=== PATIENT | male | born 1930 | race Caucasian/White ===

== ENCOUNTER 2016-11-07 04:59 | Inpatient (IN) | payer OTHER, MEDICARE ==
[~2016-11-07] VITALS: Ht 160 cm; Wt 87.1 kg
[~2016-11-07 04:59] MED LIST: ATENOLOL50 M1 PO; MYRBETRIQ50 M1 PO; OMEPRAZOLE20 M2 PO; TROSPIUM CHLORI20 M1 PO
[2016-11-07] MEDS ORDERED: VITAMIN C WIT1000 MG PO (11:51)
[2016-11-07] MEDS ORDERED: DILAUDID2 M1 PO (13:49)
[2016-11-07] MEDS ORDERED: MIRALAX17 G1 PO (13:49)
[2016-11-07] MEDS ORDERED: ASPIRIN EC325 M2 PO (13:49)
[2016-11-07] MEDS ORDERED: MS CONTIN15 M2 PO (13:49)
[2016-11-07] MEDS ORDERED: COLACE100 M1 PO (13:49)
--- NOTE | 2016-11-07 13:53 | Patient Discharge Instructions ---
Discharge Instructions General Discharge Information You were seen/treated for: Left hip pain related to unilateral primary osteoarthritis You had these procedures: Left total hip replacement Watch for these problems: Increasing pain despite the use of pain medication. Increasing redness, warmth, swelling. Drainage of any type from incision. Inability to bear weight on operative leg. Persistent nausea and vomitting. Fever greater than 101.5 degrees. Do not soak the wound: Yes No bath, but you may shower: Yes Other wound care: Keep wound clean and dry. Your dressing will be changed on the second day following your surgery by nursing. Daily dry dressing changes recommend thereafter. No ointments or lotions of any type on or near incision at any time. No exceptions. Special Instructions: Aspirin: You are taking aspirin to help prevent the development of blood clots. You will be taking it twice a day. Please take this as directed for four weeks. Please take with food to help protect your stomach. Constipation: Pain medications can be very constipating. You have been given a prescription for colace and miralax. Please take this as directed. In the event that you run out of these medications, they are available over the counter. You may discontinue these medications if you develop loose stool or diarrhea. If you are unable to move your bowels for several days, or if you have not passed any gas, please contact your doctor. Diet Continue normal diet: No Recommended Diet: Regular Activity Full Activity/No Limits: No Activity Self Limited: Yes Pounds, do NOT lift more than: 10 Activity Limited to: Weight bear as tolerated Acute Coronary Syndrome Inclusion Criteria At DC or during hospital stay patient has or had the following: ACS DIAGNOSIS No Discharge Core Measures Meds if any: Prescribed or Continued at Discharge Meds if any: NOT Prescribed or Continued at Discharge Congestive Heart Failure Inclusion Criteria At DC or during hospital stay patient has or had the following: CHF DIAGNOSIS No Discharge Core Measures Meds if any: Prescribed or Continued at Discharge Meds if any: NOT Prescribed or Continued at Discharge Cerebrovascular accident Inclusion Criteria At DC or during hospital stay patient has or had the following: CVA/TIA Diagnosis No Discharge Core Measures Meds if any: Prescribed or Continued at Discharge Meds if any: NOT Prescribed or Continued at Discharge Venous thromboembolism Inclusion Criteria VTE Diagnosis No VTE Type NONE VTE Confirmed by (Test) NONE Discharge Core Measures - Per Current guidelines, there needs to be overlap - treatment for the first 5 days of Warfarin therapy. - If discharged on Warfarin prior to 5 days of - overlap therapy, the patient will need to be - assessed for post discharge needs including - *Post discharge parental anticoagulation - *Warfarin and/or parental anticoagulation education - *Follow up date to check INR post discharge At least 5 days overlap therapy as Inpatient No Meds if any: Prescribed or Continued at Discharge Note: Overlap Therapy is Warfarin and Anticoagulant Meds if any: NOT Prescribed or Continued at Discharge
--- NOTE | 2016-11-07 13:54 | Admission Core Measures ---
Admission Meds I reviewed the following Meds: Current Medications Sig/Yuliya Start time Last Medication Dose Stop Time Status Admin Acetaminophen 975 MG ONCE 11/07 0000 NR (Tylenol) 11/07 235 Atenolol 50 MG DAILY 11/08 1000 AC (Tenormin) Cefazolin Sodium 2,000 MG ONCE 11/07 0000 NR (Kefzol-Ancef Inj) 11/07 235 Mirabegron 25 MG DAILY 11/07 1315 AC (Myrbetriq) Non-Formulary 0 SEE ADMIN CRITERIA 11/07 1330 CAN Medication (NON FORMULARY) Non-Formulary 0 SEE ADMIN CRITERIA 11/07 1315 CAN Medication (NON FORMULARY) Omeprazole 20 MG DAILY AC 11/08 0700 AC (Prilosec) Oxycodone HCl 10 MG ONCE 11/07 0000 AC (Roxicodone) 11/07 2359 Patient Own 1 UNIT BID 11/07 1330 CAN Medication (Patients Own Med) Acute Coronary Syndrome Inclusion Criteria ACS Diagnosis No Inpatient Core Measures LDL Reminder: If No, please order W/I first 24hr of stay Congestive Heart Failure Inclusion Criteria CHF Diagnosis No Cerebrovascular accident Inclusion Criteria CVA/TIA Diagnosis No Inpatient Core Measures Bedside Swallow Eval Reminder: If BSE failed, place ST order Antithrombotic Reminder: Order Antithrombotic Medication by end of day 2 Antithrombotic Reminder: Document Reason Antithrombotic Not ordered by end of day 2 AFIB/Flutter Reminder: If Present, add to problem list AFIB/Flutter Reminder: Order Anticoag Medication for pts with AFIB/Flutter Atherosclerosis Reminder: If Present, add to problem list LDL Reminder: If No, please order W/I first 24hr of stay PT Order Reminder: If No, please order Venous thromboembolism Inpatient Core Measures VTE Risk Factors: Age > 40, Surgery No [facility] VTE prophylaxis d/t No contraindications No VTE Pharm Prophylaxis d/t No contraindications Inclusion Criteria - Per Current guidelines, there needs to be overlap - treatment for the first 5 days of Warfarin therapy. - Parenteral Anticoagulation (IV or SC) needs to be - given along with Warfarin therapy. VTE Diagnosis No VTE Type NONE VTE Confirmed by (Test) NONE Problem List As ranked by this Provider includes Assessment & Plan 1. Unilateral primary osteoarthritis, left hip HOME MEDS Home Med List Ascorbic Acid (Vitamin C With Teri Hips) 1,000 MG TABLET 1 1000 PO DAILY HEALTH SUPPLEMENT (Reported) Aspirin (Ecotrin*) 325 MG TABLET.DR Trevino TAB PO BID ANTICOAGULATION Atenolol 50 MG TABLET 1 TAB PO DAILY HTN (Reported) Docusate Sodium (Colace) 100 MG CAPSULE 1 CAP PO BID CONSITPATION Hydromorphone HCl (Dilaudid) 2 MG TABLET 1-2 TAB PO Q4-6 PRN PAIN Mirabegron (Myrbetriq) 50 MG TAB.ER.24H 0.5 TAB PO DAILY BLADDER (Reported) Morphine Sulfate (Ms Contin) 15 MG TABLET.ER 1 TAB PO BID PAIN Omeprazole 20 MG CAPSULE.DR 1 CAP PO DAILY GERD (Reported) Polyethylene Glycol 3350 (Miralax) 17 GRAM POWD.PACK 1 PAC PO DAILY CONSTIPATION Trospium Chloride 20 MG TABLET 1 TAB PO BID BLADDER (Reported)
--- NOTE | 2016-11-07 13:57 | Surgical Discharge Summary ---
Visit Information Visit Dates Admission Date: 11/07/16 Discharge Date: 11/08/16 History of Present Illness Chief Complaint: Left hip pain secondary to unilateral primary osteoarthritis Surgical History Pertinent Surgical History: non-contributory Review of Systems: See H&P Hospital Course Course Attending Physician: LUCINDA ESCALERA MD Primary Care Physician: TYRONE ZACARIAS,[facility] Course: Patient was admitted to the hospital on 11/07/2016 for an elective total joint replacement. The procedure was tolerated well and the patient was transferred to a general surgical floor. There, the patient's diet was advanced and tolerated, the patient voided spontaneously, and was evaluated and treated by physical therapy. At the time of hospital discharge, vital signs were stable and within normal limits, neurovascular status was intact, and pain was controlled with the use of oral pain medication. Allergies: Uncoded Allergies: CONTRAST DYE (Severe, HIVES 11/02/16) Disposition Summary Disposition Principal Diagnosis: Left hip unilateral primary osteoarthritis Additional Diagnosis: none Discharge Disposition: home health services Discharge Instructions General Discharge Information Code Status: Full Code Patient's Diet: Regular, advance as tolerated Patient's Activity: WBAT Follow-Up Instructions/Appts: Follow up with Dr. Escalera in 6 weeks from date of surgery. Please call his office to arrange and or confirm this appointment. Medications at Discharge Discharge Medications: Continue taking these medications: Trospium Chloride (Trospium Chloride) 20 MG TABLET 1 Tablet ORAL TWICE DAILY Mirabegron (Myrbetriq) 50 MG TAB.ER.24H 0.5 Tablet ORAL DAILY Atenolol (Atenolol) 50 MG TABLET 1 Tablet ORAL DAILY Omeprazole (Omeprazole) 20 MG CAPSULE.DR 1 Capsule ORAL DAILY Ascorbic Acid (Vitamin C With Teri Hips) 1,000 MG TABLET 1 1000 ORAL DAILY Start taking the following new medications: Aspirin (Ecotrin*) 325 MG TABLET.DR 1 Tablet ORAL TWICE DAILY Qty = 60 No Refills Docusate Sodium (Colace) 100 MG CAPSULE 1 Capsule ORAL TWICE DAILY Qty = 14 No Refills Instructions: DISCONTINUE USE IF YOU DEVELOP LOOSE STOOL OR DIARRHEA Hydromorphone HCl (Dilaudid) 2 MG TABLET 1-2 Tablet ORAL EVERY 4-6 HOURS as needed for PAIN Qty = 36 No Refills Polyethylene Glycol 3350 (Miralax) 17 GRAM POWD.PACK 1 Packet ORAL DAILY Qty = 7 No Refills Instructions: dissolve in water, DISCONTINUE USE IF YOU DEVELOP LOOSE STOOL OR DIARRHEA Morphine Sulfate (Ms Contin) 15 MG TABLET.ER 1 Tablet ORAL TWICE DAILY Qty = 4 No Refills
--- NOTE | 2016-11-07 15:17 | RADIOLOGY REPORT ---
EXAMINATION: XR HIP, LEFT CLINICAL INFORMATION: Status post left total hip replacement. COMPARISON: 09/13/2016 TECHNIQUE: Two views of the left hip. FINDINGS: There has been interval total left hip replacement. There is anatomic alignment of the prosthesis. No periprosthetic fracture. No hardware complication. Expected immediately postoperative changes including some soft tissue air are visualized. There are stable clips seen within the left side of the pelvis. IMPRESSION: Status post total left hip replacement without evidence of hardware complication.
--- NOTE | 2016-11-07 16:13 | PN- Orthopedic ---
Subjective Subjective: The patient was seen this afternoon postoperatively. He reports that his pain is under adequate control and no other complaints at the current time. Objective Vital Signs and I&Os Vital signs: Blood pressure 110/60, pulse 59, temperature 97.8, O2 saturation 98 % on 3 L via nasal cannula I's and O's: 1500ml in of lactated Ringer's/patient is due to void/EBL less than 100 Physical Exam: Gen.: Alert and in no obvious distress Skin: Warm and dry Cardiac: S1 and S2 regular Pulmonary: Bilateral breath sounds were equal and slightly decreased at bases Extremities: Bilateral lower extremities are warm without calf tenderness or significant edema. Gross motor and sensory were intact. Left hip surgical dressing is clean, dry, and intact. Assessment/Plan Assessment/Plan Assessment: 85-year-old male status post left total hip arthroplasty. Postoperative the patient is progressing as expected and his pain is under adequate control. Plan: Out of bed with physical therapy patient is weightbearing as tolerated Continue current pain regiment GI and DVT prophylaxis first dose of aspirin started tonight IV hydration until patient voids Strict I's and O's Follow-up morning laboratory studies Resume all medications 2 doses of postoperative prophylactic antibiotics Incentive spirometry, wean O2 requirement Advance diet as tolerated Core Measures/Miscellaneous Venous Thromboembolism VTE Risk Factors: Age > 40, Surgery VTE Contraindications: No Contraindications VTE Diagnosis: No VTE Type: NONE VTE Confirmed by (Test): NONE Beta Jaime Is Beta Jaime a Home Med? Yes If Yes, Was This Ordered Today? Yes Antibiotics Is Patient on Antibiotics? Yes If Yes: prophylaxis
--- NOTE | 2016-11-07 16:23 | Operative Report ---
Operative/Inv Procedure Report Surgery Date: 11/07/16 Name of Procedure: Left total hip replacement Pre-Operative Diagnosis: Primary left hip DJD Post-Operative Diagnosis: Same Estimated Blood Loss: 250 Surgeon/Die Inspector: LALI ZACARIAS,LUCINDA Manzanares Anesthesia: block Operative/Procedure Note Note: Description of Procedure: The patient was taken to the operating room and positively identified. After induction of spinal anesthesia and administration of appropriate pre-operative antibiotics, the patient was positioned supine on the operating room table and all bony prominences were well padded. After performing a surgical timeout, the left lower extremity was prepped and draped in the usual sterile fashion. A direct anterior approach was made to the left hip. The incision was carried sharply through superficial soft tissues to the level of the fascia. Meticulous hemostasis was maintained with Bovie electocautery. The fascia over the tensor fascia alex muscle was opened sharply and the interval between the TFL and the sartorius was entered bluntly taking care to stay lateral to the lateral femoral cutaneous nerve. Retractors were placed around the femoral neck and the pericapsular fat was identified. The ascending branches of the lateral femoral circumflex vessels were identified and carefully coagulated. The pericapsular fat and anterior capsule were then resected. A napkin ring osteotomy was performed and the femoral head was removed without difficulty. Attention was then turned to the acetabulum. After appropriate placement of retractors, the acetabulum was exposed. Soft tissue was cleaned from the acetabular margin and notch. Overhanging osteophytes were removed and the teardrop was exposed. The acetabulum was then sequentially reamed to accept a 60 mm Belmont Tritanium hemispherical solid back shell. This was impacted into place in the appropriate position and fitted with a 36 mm Trident X3 zero degree polyethylene insert. Attention was then turned to the femur. After performing the appropriate ligament releases, the proximal femur was exposed. It was then sequentially broached to accept a size 6 Belmont accolade 2 stem. This was trialed for leg length and stability. The trial component was removed and the final component was impacted into place. The trunnion was carefully cleaned and fit with a 36 mm, - 2.5 Biolox delta ceramic femoral head. The hip was reduced and put through a full range of motion and found to be stable. The articular space was then irrigated with sterile saline. The periarticular soft tissues were infilitrated with Marcaine. The fascial layer was closed with interrupted #1 vicryl suture and the skin was re-approximated with interrupted 2 -0 vicryl. The skin was closed with a running 3-0 V-Lock suture. Steri-strips and a sterile dressing were applied. The patient was awakened and taken to the recovery room in satisfactory condition.
[2016-11-07 19:17] VITALS: BP 120/60
[2016-11-07 21:45] VITALS: BP 122/70
[2016-11-07 23:02] VITALS: BP 142/70
[2016-11-08 03:00] VITALS: BP 118/64
[2016-11-08 06:30] VITALS: BP 118/68
[2016-11-08 07:53] LABS: ABSOLUTE BASOPHIL COUNT 0 /CUMM (0.0-0.2); ABSOLUTE EOSINOPHIL COUNT 0.1 /CUMM (0.0-0.7); ABSOLUTE GRANULOCYTE CT 6.1 /CUMM (1.4-6.5); ABSOLUTE LYMPH COUNT 1.4 /CUMM (1.2-3.4); ABSOLUTE MONOCYTE COUNT 0.7 /CUMM (0.10-0.60); BASOPHIL % 0.2 % (0.0-2.0); EOSINOPHIL % 0.9 % (0-5); GRANULOCYTE % 73.4 % (42.2-75.2); MEAN CORPUSCULAR HGB 31.1 PG (27.0-31.0); MEAN CORPUSCULAR HGB CONC 33.8 G/DL (33.0-37.0); MEAN CORPUSCULAR VOLUME 92.3 FL (80.0-94.0); MEAN PLATELET VOLUME 6.6 FL (7.4-10.4); PLATELET COUNT 184 /CUMM (130-400); RBC DISTRIBUTION WIDTH 14.8 % (11.5-14.5); WHITE BLOOD CELL COUNT 8.3 /CUMM (4.8-10.8)
--- NOTE | 2016-11-08 08:10 | PN- Orthopedic ---
Subjective Subjective: The patient was seen this morning postoperatively day #1. He reports that his pain is under adequate control and he has no other complaints of current time. Objective Vital Signs and I&Os Vital Signs Date Time Temp Pulse Resp B/P B/P Pulse O2 O2 Flow FiO2 Mean Ox Delivery Rate 11/08 0630 98.6 89 18 118/68 94 Room Air 11/08 0429 99.8 11/08 0300 99.8 97 20 118/64 93 Room Air 11/07 2302 100.6 85 18 142/70 96 Room Air 11/07 2145 97.6 78 20 122/70 94 Room Air / 1917 97.9 74 20 120/60 97 Room Air 11/07 1844 Room Air Room Air Intake & Output 11/08 1600 11/08 0800 11/08 0000 / 1600 11/07 0800 / 0000 Intake Total 720 345 Output Total 500 1000 Balance 220 -655 Intake, IV 600 225 Intake, Oral 120 120 Output, Urine 500 1000 Patient 192 lb Weight Weight Reported by Patient Measurement Method Physical Exam: Gen.: Alert and in obvious distress Skin: Warm and dry Extremities: Bilateral lower extremities are warm without calf tenderness or significant edema. Gross motor and sensory are intact. Left hip surgical dressing is clean, dry, and intact. Assessment/Plan Assessment/Plan Assessment: 85-year-old male status post left total hip arthroplasty postoperative day #1. The patient is progressing as expected and his pain is under adequate control. Plan: Out of bed with physical therapy Continue current pain regiment Hep-Lock IV fluids Follow-up morning laboratory studies GI and DVT prophylaxis Discharge home later today Core Measures/Miscellaneous Venous Thromboembolism VTE Risk Factors: Age > 40, Surgery VTE Contraindications: No Contraindications VTE Diagnosis: No VTE Type: NONE VTE Confirmed by (Test): NONE Beta Jaime Is Beta Jaime a Home Med? Yes If Yes, Was This Ordered Today? Yes Antibiotics Is Patient on Antibiotics? No
--- NOTE | 2016-11-08 10:37 | NUR ---
NURSING NOTE: PATIENT LEFT FLOOR VIA W/C WITH DISTRIBUTION AND SPOUSE FOR DISCHARGE WITH HOME HEALTH SERVICES. PATIENT A/OX3, STEADY GAIT WITH CANE. PAIN CONTROLLED AT THIS TIME. IV DISCONTINUED. DURACOLD ICE PACKS AND HIP KIT GIVEN TO PATIENT FOR DISCHARGE. ALL DISCHARGE PAPERWORK DISCUSSED WITH PATIENT. PATIENT SPOUSE STOPPED AT PHARMACY AND PICKED UP PRESCRIPTIONS.
== END 2016-11-08 10:37 | disposition home health service (06) | DRG 470 ==
LOC: SDA 04:59 → 2NB 04:59 → ENRESERV 15:28 → ENTRNSPT 16:02 → 2NB 16:14 → CMPTRNSPT 16:17 → ENPENDDIS 11-08 08:54 → 2NB 11-08 10:37
PROVIDERS: Nurse Practitioner; ADMIT Orthopaedic Surgery
PROC: 0SRB04A Replacement of Left Hip Joint with Ceramic on Polyethylene Synthetic Substitute, Uncemented, Open Approach (ICD-10-PCS; principal; 2016-11-07)
DX: M16.12 Unilateral primary osteoarthritis, left hip (principal); E66.9 Obesity, unspecified; I10 Essential (primary) hypertension; K21.9 Gastro-esophageal reflux disease without esophagitis; N40.0 Benign prostatic hyperplasia without lower urinary tract symptoms; Z68.35 Body mass index [BMI] 35.0-35.9, adult; Z87.891 Personal history of nicotine dependence
CPT/HCPCS: 2NBSP; 36415; 73502-LT; 82436; 88304; 97110-GO; 97116-GO; 97161-GP; 97530-GO; J0131; J0690; J0735; J2405; J2550; J7042